=== PATIENT | female | born 1965 | race Caucasian/White ===

== ENCOUNTER 2024-09-24 09:09 | Emergency (ER) | payer OTHER ==
[~2024-09-24] VITALS: Ht 157.5 cm; Wt 71.2 kg
[~2024-09-24 09:09] MED LIST: ASA81 MG; DIGOXIN125 MCG; FLEXERIL10 MG PO; KETO10TA2 PO; LASIX20 MG; LISINOPRIL20 MG; ZYRTEC10 MG PO; [UNRECOGNIZED DRUG - OTHER]
[2024-09-24] MEDS ORDERED: CATAPRES0.3 MG PO (09:35)
[2024-09-24] MEDS ORDERED: COREG CR10 MG PO (09:35)
[2024-09-24] MEDS ORDERED: METFORMIN HCL500 MG (09:36)
[2024-09-24] MEDS ORDERED: ENTRESTO 24 MG1 EACH (09:37)
[2024-09-24] MEDS ORDERED: CEFTRIAXONE SODIUM 1,000 MG VIAL IV ONE (10:30)
[2024-09-24] MEDS ORDERED: TAMSULOSIN HCL 0.4 MG CAP PO ONE (10:30)
[2024-09-24] MEDS ORDERED: KETOROLAC TROMETHAMINE 60 MG VIAL IM ONE (10:30)
[2024-09-24 12:05] LABS: HEMATOCRIT 42.8 % (36.0-45.00); HEMOGLOBIN 14.3 g/dL (12.0-15.00); MEAN CORPUSCULAR HEMOGLOBIN 27.8 pg (27.00-32.0); MEAN CORPUSCULAR HGB CONC 33.5 g/dl (32.0-36.0); PLATELET COUNT 419 K/uL (150-450); RED BLOOD COUNT 5.15 M/uL (4.00-6.00); RED CELL DISTRIBUTION WIDTH 13.7 % (11.5-14.5)
[2024-09-24 12:23] LABS: PH,URINE 5.5 (5.0-8.0); URINE APPEARANCE Cloudy; URINE BILIRRUBIN Negative (NEGATIVE); URINE BLOOD Negative; URINE COLOR Yellow; URINE KETONE Negative (NEGATIVE); URINE LEUKOCYTE Negative; URINE NITRATE Negative; URINE PROTEIN Negative (NEGATIVE); URINE UROBILINOGEN 0.2 E.U./dl
[2024-09-24 12:26] LABS: INR 0.99; PARTIAL THROMBOPLASTIN TIME 25.6 SECONDS (22.0-34.0); PROTHROMBIN TIME 10.8 SECONDS (9.0-11.5)
[2024-09-24 12:28] LABS: URINE CAST 1.61 uL (0.0-1.40); URINE EPITHELIAL CELLS 19.3 uL (0.0-38.8); URINE RBC 27.2 uL (0.0-20.8); URINE WBC 121.4 uL (0.0-23.2)
[2024-09-24 12:50] LABS: URINE BACTERIA > 9821.5 uL (0.0-1933); URINE GLUCOSE >=1000 MG/DL (NEGATIVE)
[2024-09-24 12:58] LABS: ALBUMIN 3.4 gm/dL (3.4-5.0); BILIRUBIN TOTAL 0.54 mg/dL (0.3-1.2); CALCIUM 9.5 mg/dL (8.5-10.1); CREATININE SERUM 1.1 mg/dL (0.55-1.02); GFR 50.84; POTASSIUM 4.5 mEq/L (3.5-5.1); TOTAL PROTEIN 7.4 gm/dL (6.4-8.2)
[2024-09-24] MEDS ORDERED: INSULIN LISPRO 1,000 UNIT/10 ML UNITS SUBCUTANEO STA (13:43)
[2024-09-24] MEDS ORDERED: FAMOTIDINE/PF 20 MG/2 ML VIAL IV PUSH STA (17:46)
[2024-09-24] MEDS ORDERED: HYOSCYAMINE SULFATE 0.125 MG TAB.SUBL SL ONE (18:15)
[2024-09-24 18:38] LABS: CALCIUM 9.8 mg/dL (8.5-10.1); CREATININE SERUM 0.98 mg/dL (0.55-1.02); GFR 58.09; POTASSIUM 4.12 mEq/L (3.5-5.1)
== END 2024-09-24 20:13 | disposition home or self-care (01) ==
LOC: ER 09:09
PROVIDERS: Emergency Medicine; General Practice
DX: R10.9 Unspecified abdominal pain (principal); I11.0 Hypertensive heart disease with heart failure; I50.9 Heart failure, unspecified; E11.65 Type 2 diabetes mellitus with hyperglycemia; Z79.84 Long term (current) use of oral hypoglycemic drugs; M32.8 Other forms of systemic lupus erythematosus; Z95.810 Presence of automatic (implantable) cardiac defibrillator; K59.00 Constipation, unspecified; K76.0 Fatty (change of) liver, not elsewhere classified